=== PATIENT | female | born 2000 | race Caucasian/White ===

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

== ENCOUNTER 2021-05-07 15:12 | Emergency (ER) | payer OTHER ==
[~2021-05-07] VITALS: Ht 162.6 cm; Wt 69.8 kg
--- NOTE | ~2021-05-07 | EMS ---
[address] [address] EMS Patient Care Report Name: MIKE CHEN Room #: DEP JAYCEE Melgar#: [id number] Admission: 05/07/21 Attend Phys: Discharge: 05/07/21 Date of : 01 Report #: [id number] THIS REPORT FOR: //name// Report Transmitted: 05/09/2021 10:58 EMS Care Summary [place], [place]/[facility] Incident [id number] @ 05/07/2021 14:06 Incident Location [address] [place] [address] Patient MIKE CHEN Female, 20 Years 2000 Patient Address [address] [place] [address] Patient History None Reported, Patient Allergies No known allergies, Patient Medications None Reported, Chief Complaint blood when wiping after bowel movement Disposition Transported No Lights/[place] Dispatch Reason Sick Person Transported To [facility] Narrative M29 dispatched to residence for sick. O/A M29 found 2 pt's. One pt was mother on the couch and the other pt was daughter in the living room. Daughter reported she recently had a bowel movement and saw blood on the toilet [address] [address] EMS Patient Care Report Name: MIKE CHEN Room #: DEP ER ZacDana#: [id number] Admission: 05/07/21 Attend Phys: Discharge: 05/07/21 Date of : 01 Report #: [id number] paper. Pt walked to [facility] and transported to [facility]. [facility] in service. Initial Vitals @14:25P: 96,R: 18,BP: 127/83,Pain: 0/10,GCS: 15,CO: 5,SpO2: 95,Revised Trauma: 12, @14:41P: 80,R: 18,BP: 122/80,Pain: 0/10,GCS: 15,Glucose: 86,Revised Trauma: 12, Assessments @14:36MENTAL:No Abnormalities,SKIN:No Abnormalities,HEENT:Head/Face: No Abnormalities,Eyes: No Abnormalities,Neck/Airway: No Abnormalities,LUNG SOUNDS:General: No Abnormalities,Left Upper: No Abnormalities,Right Upper: No Abnormalities,Left Lower: No Abnormalities,Right Lower: No Abnormalities,ABDOMEN:General: No Abnormalities,Left Upper: No Abnormalities,Right Upper: No Abnormalities,Left Lower: No Abnormalities,Right Lower: No Abnormalities,PELVIS//GI:No Abnormalities,EXTREMITIES:Left Arm: No Abnormalities,Right Arm: No Abnormalities,Left Leg: No Abnormalities,Right Leg: No Abnormalities,PULSE:NEURO:No Abnormalities,@14:36MENTAL:No Abnormalities,SKIN:No Abnormalities,HEENT:Head/Face: No Abnormalities,Eyes: No Abnormalities,Neck/Airway: No Abnormalities,LUNG SOUNDS:General: No Abnormalities,Left Upper: No Abnormalities,Right Upper: No Abnormalities,Left Lower: No Abnormalities,Right Lower: No Abnormalities,ABDOMEN:General: No Abnormalities,Left Upper: No Abnormalities,Right Upper: No Abnormalities,Left Lower: No Abnormalities,Right Lower: No Abnormalities,PELVIS//GI:No Abnormalities,EXTREMITIES:Left Arm: No Abnormalities,Right Arm: No Abnormalities,Left Leg: No Abnormalities,Right Leg: No Abnormalities,PULSE:NEURO:No Abnormalities, Impression Gastrostomy hemorrhage Timeline 14:03,Call Received 14:03,Dispatch Notified 14:06,Dispatched 14:09,En Route 14:15,On Scene 14:17,At Patient 14:25,BP: 127/83 M,PULSE: 96,RR: 18 R,SPO2: 95 Ox,ETCO2: ,BG: ,PAIN: 0,GCS: 15, 14:37,Depart Scene 14:41,BP: 122/80 M,PULSE: 80,RR: 18 R,SPO2: Ox,ETCO2: ,B,PAIN: 0,GCS: 15, 14:52,At Destination 15:08,Call Closed Disclaimer [address] [address] EMS Patient Care Report Name: MIKE CHEN Room #: [facility] JAYCEE Melgar#: [id number] Admission: 05/07/21 Attend Phys: Discharge: 05/07/21 Date of : 01 Report #: [id number] v1.1 Copyright 2020 [employer] This EMS Care Summary contains data elements from the applicable legal record (which may be displayed differently). It is designed to provide pertinent information for the following purposes: continuity of care, clinical quality, and state data reporting. The complete legal record is available to ED staff and administrators of the receiving hospital in [facility]'s Patient Tracker. All data is provided "as is."
[~2021-05-07 15:12] MED LIST: MAGIC MOUTHWASH SW&SWALLOW
[2021-05-07 16:31] LABS: ABSOLUTE NEUTROPHILS 2.6 thou/uL (1.4-8.2); BASOPHILS 1.2 % (0.0-2.0); EOSINOPHILS 2.5 % (0.0-3.0); HEMATOCRIT 38.9 % (37.0-47.0); HEMOGLOBIN 12.9 gm/dL (12.0-15.0); LYMPHOCYTES 31.8 % (24.0-44.0); MCH 26.7 pg (26.0-34.0); MCV 80.8 fL (80.0-100.0); MONOCYTES 12.7 % (1.0-8.0); PLATELET COUNT 298 thou/uL (150-400); POLYS 51.8 % (36.0-66.0); RBC 4.82 mil/uL (4.20-5.00); WBC 5.1 thou/uL (4.0-11.0)
[2021-05-07] MEDS ORDERED: COLACE100 MG PO (17:03)
[2021-05-07 17:52] VITALS: BP 122/68
== END 2021-05-07 18:33 | disposition home or self-care (01) ==
LOC: ER 15:12
PROVIDERS: Nurse Practitioner
DX: K62.5 Hemorrhage of anus and rectum (principal)